=== PATIENT | female | born 1975 | race Caucasian/White ===

== ENCOUNTER 2018-12-20 05:33 | Day surgery (SDC) | payer OTHER ==
[2018-12-20] MEDS: LACTATED RINGER'S 1,000 ML IV (07:16)
[2018-12-20] MEDS ORDERED: LIDOCAINE 2% (SDV) 5 ML INJ (07:24)
[2018-12-20] MEDS ORDERED: CEFAZOLIN 1 GM INJ (07:24)
[2018-12-20] MEDS ORDERED: PROPOFOL 20 ML (07:24)
[2018-12-20] MEDS ORDERED: ONDANSETRON 4 MG INJ (07:25)
[2018-12-20] MEDS ORDERED: METOCLOPRAMIDE 10 MG INJ (07:25)
[2018-12-20] MEDS ORDERED: MEPERIDINE 100 MG INJ (07:25)
[2018-12-20] MEDS ORDERED: MIDAZOLAM 1 MG/ML 2 ML INJ IV (09:30)
[2018-12-20] MEDS ORDERED: MEPERIDINE 25 MG INJ IV (09:30)
[2018-12-20] MEDS ORDERED: OXYCODONE/ACETAMINOPHEN (5/325) TAB PO ×2 (09:30)
[2018-12-20] MEDS ORDERED: FENTAnyl 50 MCG/ML VIAL IV ×3 (09:30)
[2018-12-20] MEDS ORDERED: METOCLOPRAMIDE 10 MG INJ IV (09:30)
[2018-12-20] MEDS ORDERED: DIPHENHYDRAMINE 50 MG INJ IV (09:30)
[2018-12-20] MEDS ORDERED: HYDROmorphONE 1 MG/5 ML IV SYRINGE IV ×3 (09:30)
[2018-12-20] MEDS ORDERED: ONDANSETRON 4 MG INJ IV (09:30)
== END 2018-12-20 10:41 | disposition home or self-care (01) ==
LOC: SDS 05:33
DX: D25.0 Submucous leiomyoma of uterus (principal); F41.9 Anxiety disorder, unspecified
CPT/HCPCS: 58561; 88305